=== PATIENT | male | born 1945 ===

== ENCOUNTER 2025-09-25 10:15 | Outpatient (CLI) | payer MEDICARE | END 2025-09-25 10:16 | disposition home or self-care (01) | LOC: PET 10:15 | PROVIDERS: ATTEND Internal Medicine Hematology & Oncology | DX: C91.10 Chronic lymphocytic leukemia of B-cell type not having achieved remission (principal); C44.201 Unspecified malignant neoplasm of skin of unspecified ear and external auricular canal; C61 Malignant neoplasm of prostate | CPT/HCPCS: 78816; A9552 ==